=== PATIENT | male | born 1970 | race African-American/Black ===

== ENCOUNTER 2023-02-10 10:15 | Emergency (ER) | payer OTHER ==
[2023-02-10] MEDS ORDERED: Iopamidol-370 76% 500 ML MDV (1 ML CHARGE) ONE (10:25)
[2023-02-10] MEDS ORDERED: Ondansetron PF 4 MG/2 ML Vial ONE (10:30)
[2023-02-10] MEDS ORDERED: fentaNYL 50 mcg/mL 1 mL Vial ONE (10:30)
== END 2023-02-10 11:55 | disposition home or self-care (01) ==
LOC: ERS 10:15
DX: S16.1XXA Strain of muscle, fascia and tendon at neck level, initial encounter (principal); S30.0XXA Contusion of lower back and pelvis, initial encounter; V89.2XXA Person injured in unspecified motor-vehicle accident, traffic, initial encounter
CPT/HCPCS: 70450; 71260; 72125; 74177; 96374; 96375; G0390; J2405; J3010; Q9967